=== PATIENT | male | born 1995 | race Caucasian/White ===

== ENCOUNTER 2017-05-21 02:45 | Emergency (ER) | payer OTHER ==
[2017-05-21 02:58] VITALS: BP 127/76; PULSE 74; TEMP 97; BMI 25.0
--- NOTE | 2017-05-21 03:10 | PDOC ---
History of Present Illness - General Chief Complaint: Laceration Stated Complaint: LACERATION (WORK RELATED) Time Seen by Provider: 05/21/17 02:56 History Source: Patient Exam Limitations: No Limitations - History of Present Illness Initial Comments: 05/21/17 03:08 21-year-old male who is right hand dominant with no medical history presents to the emergency department complaining of a laceration to the right fifth digit. Patient states while at work, a broken glass plate cut his finger. Bleeding controlled with direct pressure prior to his arrival to the ER. Patient denies extremity numbness or tingling sensation. Tetanus within 5 years. Timing/Duration: reports: just prior to arrival Past History - Past Medical History Allergies/Adverse Reactions: Allergies Allergy/AdvReac Type Severity Reaction Status Date / Time No Known Allergies Allergy Verified 05/21/17 02:54 Home Medications: Ambulatory Orders Amoxicillin/Potassium Clav [Augmentin 875-125 Tablet] 1 each PO BID #12 tablet 04/25/16 Clindamycin [Cleocin -] 300 mg PO TID #18 capsule 04/25/16 Methylprednisolone [Medrol Dose Reynaldo] 4 mg PO ASDIR #21 tablet 04/25/16 Other medical history: denies - Suicide/Smoking/Psychosocial Hx Smoking History: Current every day smoker Have you smoked in the past 12 months: No Number of Cigarettes Smoked Daily: 1 Information on smoking cessation initiated: No Hx Alcohol Use: No Drug/Substance Use Hx: No Review of Systems - Review of Systems Able to Perform ROS?: Yes Comments:: 05/21/17 03:10 Other ROS reviewed and are negative Is the patient limited Kazakh proficient: No *Physical Exam - Vital Signs Last Vital Signs Temp Pulse Resp BP Pulse Ox 97 F L 74 18 127/76 05/21/17 02:50 05/21/17 02:50 05/21/17 02:50 05/21/17 02:50 Progress Note - Progress Note Progress Note: Procedure: Right 5th digit medial aspect of mid phalanx betadine prep 1% lidocaine=1.5cc/digital block Betadine prep NS irrigation/copious (3) 5.0 nyon interrupted Bacitracin Bandaid *DC/Admit/Observation/Transfer Diagnosis at time of Disposition: Finger laceration Qualifiers: Encounter type: initial encounter Finger: little finger Damage to nail status: without damage Foreign body presence: without foreign body Laterality: right Qualified Code(s): S61.216A - Laceration without foreign body of right little finger without damage to nail, initial encounter - Discharge Dispostion Disposition: HOME Condition at time of disposition: Stable Admit: No - Referrals Referrals: Hudson Garcia MD [Primary Care Provider] - - Patient Instructions Printed Discharge Instructions: DI for Laceration Repair Additional Instructions: Keep the incision clean and dry for 24 hours. After 24 hours, you may allow the soap and water to rinse off your incision. Avoid direct pressure of the water to the incision. Pat the incision dry with a clean clothe. Apply a small amount of bacitracin onto the incision. Cover the incision loosely with a bandaid. Take tylenol/motrin as needed for pain. Follow up with your physician or the ER in 48 hours for a wound check. Return to the ER if you notice red streaks, increase redness/swelling/severe pain to the incision. Suture removal in 10-11 days. - Post Discharge Activity Forms/Work/School Notes: Back to Work
[2017-05-21] MEDS ORDERED: LIDOCAINE HCL 1%, 10 MG/ML (20ML VIAL) ONE (03:14)
== END 2017-05-21 03:40 | disposition home or self-care (01) ==
LOC: JER 02:45
PROC: 0HQFXZZ Repair Right Hand Skin, External Approach (ICD-10-PCS; principal; 2017-05-21)
DX: S61.216A Laceration without foreign body of right little finger without damage to nail, initial encounter (principal); W25.XXXA Contact with sharp glass, initial encounter; Y93.89 Activity, other specified; Y92.511 Restaurant or cafe as the place of occurrence of the external cause; Y99.0 Civilian activity done for income or pay; F17.210 Nicotine dependence, cigarettes, uncomplicated
CPT/HCPCS: 99282-25